=== PATIENT | male | born 1945 | race Hispanic/Latino ===

== ENCOUNTER 2023-10-30 15:23 | Emergency (ER) | payer MEDICARE ==
[2023-10-30 16:08] LABS: #Basophils 0.03 10x3/uL (0.0-0.2); %Basophils 0.5 % (0.0-1.0); %Eosinophils 1.2 % (0.0-10.0); %Lymphocytes 20.5 % (21.0-51.0); %Monocytes 14.3 % (0.0-10.0); Hematocrit 32.2 % (42.0-52.0); Hemoglobin 11.3 g/dL (14.0-18.0); Mean Corpuscular HGB CONC 35.1 g/dL (32.0-36.0); Mean Corpuscular Volume 102.5 fL (78.0-98.0); Mean Platelet Volume 8.7 fL (7.4-10.4); Platelet Count 201 10x3/uL (130-400); RBC Distribution Width 14.1 % (11.5-14.5); Red Blood Cell (RBC) Count 3.14 mill/uL (4.70-6.10)
[2023-10-30 16:22] LABS: ALT (SGPT) 21 U/L (8-55); AST (SGOT) 35 U/L (5-34); Albumin 3.3 g/dL (3.4-4.8); Alkaline Phosphatase 51 U/L (40-110); Anion Gap 17 mmol/L (10-20); BUN (Urea Nitrogen) 10 mg/dL (8.4-25.7); Bilirubin, Total 0.3 mg/dL (0.2-1.2); Calc. Creatinine Clearance 0 mL/min (70-130); Calcium 9.5 mg/dL (7.8-10.44); Carbon Dioxide 22 mmol/L (23-31); Chloride 108 mmol/L (98-107); Estimated GFR 92; Globulin 3.4 g/dL (2.4-3.5); Glucose 171 mg/dL (83-110); Potassium 4.2 mmol/L (3.5-5.1); Protein, Total 6.7 g/dL (5.8-8.1); Sodium 143 mmol/L (136-145)
== END 2023-10-30 16:50 | disposition home or self-care (01) ==
LOC: ERS 15:23
DX: R60.0 Localized edema (principal)
CPT/HCPCS: 36415; 71045; 80053; 83880; 85025; 93005

== ENCOUNTER 2024-01-09 17:25 | Inpatient (IN) | payer MEDICARE ==
[2024-01-09 18:29] LABS: Magnesium 1.4 mg/dL (1.6-2.6)
[2024-01-09 18:30] LABS: Acetaminophen Less than 10 mcg/mL (Less than 10); Alcohol Less than 10.0 mg/dL (Less than 10); Salicylate Less than 8.0 mg/dL (Less than 8.0)
[2024-01-09 18:32] LABS: ALT (SGPT) 9 U/L (8-55); AST (SGOT) 50 U/L (5-34); Albumin 3.5 g/dL (3.4-4.8); Alkaline Phosphatase 214 U/L (40-110); Anion Gap 20 mmol/L (10-20); BUN (Urea Nitrogen) 25 mg/dL (8.4-25.7); Bilirubin, Total 0.4 mg/dL (0.2-1.2); Calc. Creatinine Clearance 0 mL/min (70-130); Calcium 9.7 mg/dL (7.8-10.44); Carbon Dioxide 16 mmol/L (23-31); Chloride 105 mmol/L (98-107); Estimated GFR 60; Glucose 100 mg/dL (83-110); Potassium 4.3 mmol/L (3.5-5.1); Protein, Total 6.5 g/dL (5.8-8.1); Sodium 137 mmol/L (136-145)
[2024-01-09 18:34] LABS: Troponin I 0.022 ng/mL (< 0.028)
[2024-01-09 18:48] LABS: Hematocrit 35.5 % (42.0-52.0); Hemoglobin 12.7 g/dL (14.0-18.0); Mean Corpuscular HGB CONC 35.8 g/dL (32.0-36.0); Mean Corpuscular Volume 95.2 fL (78.0-98.0); Mean Platelet Volume 10.2 fL (7.4-10.4); Platelet Count 114 10x3/uL (130-400); RBC Distribution Width 13.2 % (11.5-14.5); Red Blood Cell (RBC) Count 3.73 mill/uL (4.70-6.10)
[2024-01-09 18:57] LABS: Band 6 % (5-11); Burr Cells SLIGHT = 2-5 cells HPF (0-1); Helmet Cells SLIGHT = 2-5 cells HPF (0-1); Lymphocytes 19 % (21-51); Metamyelocyte 1 % (0-0); Monocytes 14 % (0-10); Myelocyte 1 % (0-0); Neutrophil 58 % (42-75); Ovalocytes SLIGHT = 2-5 cells HPF (0-1); Platelet Adequacy Comment Platelets Decreased; Polychromasia SLIGHT = 2-3 cells HPF (0-2); Reactive Lymphocytes 1 % (0-10)
[2024-01-09] MEDS ORDERED: cefTRIAXone (ROCEPHIN) 1 GM VIAL ONE (19:40)
[2024-01-09] MEDS ORDERED: Sodium Chloride 0.9% 100 ML ONE (19:40)
[2024-01-09] MEDS ORDERED: Ondansetron PF 4 MG/2 ML Vial IVP PRN (21:18)
[2024-01-09] MEDS ORDERED: Guaifenesin DM 100-10/5 ML UDCUP PO PRN (21:18)
[2024-01-09] MEDS ORDERED: Calcium Carbonate 500 MG ChewTAB PO PRN (21:18)
[2024-01-09] MEDS ORDERED: Ondansetron ODT 4 MG TAB PO PRN ×2 (21:18→21:34)
[2024-01-09] MEDS ORDERED: Lorazepam 1 MG TAB PO PRN (21:34)
[2024-01-09] MEDS ORDERED: Lorazepam 2 MG/ML VIAL IM PRN (21:34)
[2024-01-09] MEDS ORDERED: Electrolyte Replacement Protocol 1 EACH FS SCH (21:45)
[2024-01-09 23:04] LABS: Hematocrit 37.2 % (42.0-52.0); Hemoglobin 13.2 g/dL (14.0-18.0); Mean Corpuscular HGB CONC 35.5 g/dL (32.0-36.0); Mean Corpuscular Hemoglobin 34.5 pg (27.0-31.0); Mean Corpuscular Volume 97.1 fL (78.0-98.0); Mean Platelet Volume 10.6 fL (7.4-10.4); Platelet Count 111 10x3/uL (130-400); RBC Distribution Width 13.2 % (11.5-14.5); Red Blood Cell (RBC) Count 3.83 mill/uL (4.70-6.10)
[2024-01-09 23:16] LABS: Bilirubin, Direct 0.2 mg/dL (0.1-0.3); Magnesium 1.4 mg/dL (1.6-2.6)
[2024-01-09 23:24] LABS: Anisocytosis SLIGHT = 6-15 cells HPF (0-5); Band 8 % (5-11); Eosinophils 3 % (0-10); Lymphocytes 19 % (21-51); Metamyelocyte 1 % (0-0); Monocytes 5 % (0-10); Neutrophil 62 % (42-75); Nucleated RBC (Manual Ct) 1 % (0); Ovalocytes SLIGHT = 2-5 cells HPF (0-1); Platelet Adequacy Comment Platelets Normal; Polychromasia SLIGHT = 2-3 cells HPF (0-2); Reactive Lymphocytes 1 % (0-10); Toxic Granulation SLIGHT
[2024-01-10 00:31] LABS: Amphetamine Not Detected (NotDetected); Barbiturates Screen Not Detected (NotDetected); Benzodiazepine Screen Not Detected (NotDetected); Cocaine Metabolite Screen Not Detected (NotDetected); Methadone Not Detected (NotDetected); Methamphetamine Not Detected (NotDetected); Opiate Screen Not Detected (NotDetected); Oxycodone Screen Not Detected (NotDetected); Phencyclidine (PCP) Not Detected (NotDetected); THC/Cannabinoid Screen Not Detected (NotDetected); Tricyclic Screen Not Detected (NotDetected)
[2024-01-10] MEDS: Magnesium Sulfate In Water 4 GM in Premix 1 BAG IVPB SCH (01:39)
[2024-01-10] MEDS: Lorazepam 1 MG TAB PO SCH (01:42)
[2024-01-10] MEDS: Sodium Chloride 0.9% 1,000 ML IV SCH (01:43)
[2024-01-10] MEDS: Thiamine HCl 200 MG/2 ML VIAL SLOW IVP SCH (01:43)
[2024-01-10] MEDS: Azithromycin 500 MG in Sodium Chloride 0.9% 250 ML 250 ML IVPB SCH (01:43)
[2024-01-10 05:28] LABS: Hematocrit 33.6 % (42.0-52.0); Hemoglobin 12.2 g/dL (14.0-18.0); Mean Corpuscular HGB CONC 36.3 g/dL (32.0-36.0); Mean Corpuscular Hemoglobin 34.1 pg (27.0-31.0); Mean Corpuscular Volume 93.9 fL (78.0-98.0); Mean Platelet Volume 10.6 fL (7.4-10.4); Platelet Count 101 10x3/uL (130-400); RBC Distribution Width 13.1 % (11.5-14.5); Red Blood Cell (RBC) Count 3.58 mill/uL (4.70-6.10)
[2024-01-10 05:46] LABS: ALT (SGPT) 9 U/L (8-55); AST (SGOT) 51 U/L (5-34); Albumin 3.3 g/dL (3.4-4.8); Alkaline Phosphatase 196 U/L (40-110); Anion Gap 18 mmol/L (10-20); BUN (Urea Nitrogen) 18 mg/dL (8.4-25.7); Bilirubin, Total 0.4 mg/dL (0.2-1.2); Calc. Creatinine Clearance 61 mL/min (70-130); Calcium 9.7 mg/dL (7.8-10.44); Carbon Dioxide 18 mmol/L (23-31); Chloride 105 mmol/L (98-107); Estimated GFR 90; Globulin 3.2 g/dL (2.4-3.5); Glucose 94 mg/dL (83-110); Protein, Total 6.5 g/dL (5.8-8.1); Sodium 137 mmol/L (136-145)
[2024-01-10 06:02] LABS: Anisocytosis SLIGHT = 6-15 cells HPF (0-5); Band 11 % (5-11); Burr Cells SLIGHT = 2-5 cells HPF (0-1); Lymphocytes 19 % (21-51); Macrocytosis SLIGHT = 6-15 cells HPF (0-5); Metamyelocyte 4 % (0-0); Monocytes 10 % (0-10); Neutrophil 56 % (42-75); Ovalocytes SLIGHT = 2-5 cells HPF (0-1); Platelet Adequacy Comment Platelets Decreased; Polychromasia SLIGHT = 2-3 cells HPF (0-2); Smudge Cells 7.9 %
[2024-01-10] MEDS: Multivit, Therapeutic 1 TAB PO SCH (08:18)
[2024-01-10] MEDS: cefTRIAXone\\ROCEPHIN 1 GM in Sodium Chloride 0.9% 100 ML IVPB SCH (08:18)
[2024-01-10] MEDS: Folic Acid 1 MG TAB PO SCH (08:18)
[2024-01-10] MEDS ORDERED: Famotidine/PF 20 mg/2ml Vial SLOW IVP SCH (09:00)
[2024-01-10] MEDS: Enoxaparin 40 MG (0.4 mL) SYRINGE SC SCH ×2 (10:20→15:37)
[2024-01-10] MEDS ORDERED: Iopamidol-370 76% 500 ML MDV (1 ML CHARGE) ONE (11:38)
[2024-01-10] MEDS: Enoxaparin 30 MG (0.3 mL) SYRINGE SC SCH (14:36)
[2024-01-10] MEDS: Pantoprazole 40 MG VIAL IVP SCH (15:15)
[2024-01-10] MEDS: Enoxaparin 60 MG (0.6 mL) SYRINGE SC SCH (15:48)
[2024-01-10] MEDS: metFORMIN 500 MG TAB PO SCH (18:25)
[2024-01-10] MEDS ORDERED: Lorazepam 1 MG TAB PO PRN (21:34)
[2024-01-11 05:33] LABS: #Basophils 0.07 10x3/uL (0.0-0.2); %Eosinophils 2.3 % (0.0-10.0); %Lymphocytes 18.2 % (21.0-51.0); %Monocytes 13.3 % (0.0-10.0); %Neutrophils 58.1 % (42.0-75.0); Hematocrit 37.7 % (42.0-52.0); Hemoglobin 13.7 g/dL (14.0-18.0); Mean Corpuscular HGB CONC 36.3 g/dL (32.0-36.0); Mean Corpuscular Hemoglobin 34.2 pg (27.0-31.0); Mean Platelet Volume 10.8 fL (7.4-10.4); Platelet Count 96 10x3/uL (130-400); RBC Distribution Width 13.1 % (11.5-14.5); Red Blood Cell (RBC) Count 4.01 mill/uL (4.70-6.10)
[2024-01-11 05:42] LABS: Anion Gap 19 mmol/L (10-20); BUN (Urea Nitrogen) 11 mg/dL (8.4-25.7); Calc. Creatinine Clearance 61 mL/min (70-130); Calcium 10.1 mg/dL (7.8-10.44); Carbon Dioxide 20 mmol/L (23-31); Chloride 104 mmol/L (98-107); Estimated GFR 90; Glucose 107 mg/dL (83-110); Sodium 139 mmol/L (136-145)
[2024-01-11] MEDS: Lorazepam 2 MG/ML VIAL SLOW IVP SCH (06:22)
[2024-01-11] MEDS: Tamsulosin HCl 0.4 MG CAP PO SCH (08:07)
[2024-01-11] MEDS: Pantoprazole 40 MG VIAL IVP SCH (08:11)
[2024-01-11 09:07] LABS: Actual Bicarbonate (HCO3a) 22.3 mEq/L (22-28); Calcium, Ionized (arterial) 1.27 mmol/L (1.12-1.30); Carboxyhemoglobin (COHb) 0.4 gm% (0.0-3.0); Hematocrit-ABG 42 % (42.0-52.0); Hemoglobin (Hb) 14.4 g/dL (14.0-18.0); pH, Arterial 7.447 (7.35-7.45)
[2024-01-11 09:10] LABS: O2 Tension (PaO2), arterial 54.4 mmHg (> 70.0); Puncture Site Right Radial artery
[2024-01-11] MEDS: Magnesium 2 GM/50 ML(in water) 2 GM in Premix 1 BAG IVPB SCH (11:00)
[2024-01-11] MEDS: Dexmedetomidine In 0.9 % NaCl 100 ML IV SCH (11:00)
[2024-01-11] MEDS ORDERED: Glucagon 1 MG/ML KIT IM PRN (11:00)
[2024-01-11] MEDS ORDERED: Dextrose 50% Abboject 50 ML SYRINGE SLOW IVP PRN (11:00)
[2024-01-11] MEDS ORDERED: Dextrose 5% in Water 1,000 ML IV PRN (11:00)
[2024-01-11] MEDS: methylPREDNISolone Sod Succ 40 MG VIAL IVP SCH (11:00)
[2024-01-11] MEDS: Enoxaparin 60 MG (0.6 mL) SYRINGE SC SCH (11:05)
[2024-01-11] MEDS: Nicotine 14 MG PATCH TD SCH (12:45)
[2024-01-11] MEDS: Lactated Ringer's 1,000 ML IV SCH (13:00)
[2024-01-11] MEDS: Lactated Ringer's 500 ML IV SCH (13:00)
[2024-01-11 16:45] LABS: INR-International Normal Ratio 1.2; PTT 35.1 sec (22.9-36.1); Prothrombin Time 14.7 sec (12.0-14.7)
[2024-01-11] MEDS: Lorazepam 0.5 MG TAB PO SCH (21:34)
[2024-01-12 06:04] LABS: Anion Gap 19 mmol/L (10-20); BUN (Urea Nitrogen) 11 mg/dL (8.4-25.7); Calc. Creatinine Clearance 61 mL/min (70-130); Calcium 9.5 mg/dL (7.8-10.44); Carbon Dioxide 21 mmol/L (23-31); Chloride 103 mmol/L (98-107); Estimated GFR 90; Glucose 114 mg/dL (83-110); Potassium 4.2 mmol/L (3.5-5.1); Sodium 139 mmol/L (136-145)
[2024-01-12 06:15] LABS: Hematocrit 33.9 % (42.0-52.0); Hemoglobin 12.4 g/dL (14.0-18.0); Mean Corpuscular HGB CONC 36.6 g/dL (32.0-36.0); Mean Corpuscular Hemoglobin 33.9 pg (27.0-31.0); Mean Corpuscular Volume 92.6 fL (78.0-98.0); Mean Platelet Volume 11.4 fL (7.4-10.4); Platelet Count 95 10x3/uL (130-400); RBC Distribution Width 13.2 % (11.5-14.5); Red Blood Cell (RBC) Count 3.66 mill/uL (4.70-6.10)
[2024-01-12 08:11] LABS: Band 7 % (5-11); Burr Cells SLIGHT = 2-5 cells HPF (0-1); Eosinophils 1 % (0-10); Large Platelets 2.9 % (0-5); Lymphocytes 12 % (21-51); Monocytes 14 % (0-10); Neutrophil 67 % (42-75); Platelet Adequacy Comment Platelets Decreased; Polychromasia SLIGHT = 2-3 cells HPF (0-2)
[2024-01-12] MEDS: Furosemide 20 MG TAB PO SCH (13:00)
[2024-01-12] MEDS: Ipratropium/Albuterol 3 ML NEB NEB SCH (14:52)
[2024-01-12] MEDS: Acetaminophen 325 MG TAB PO PRN (20:29)
[2024-01-12] MEDS: Thiamine 100 MG TAB PO SCH (20:31)
[2024-01-12] MEDS: Lorazepam 1 MG TAB PO PRN (21:03)
[2024-01-12] MEDS ORDERED: Lorazepam 0.5 MG TAB PO PRN (21:34)
[2024-01-13 05:07] LABS: Hematocrit 33.4 % (42.0-52.0); Hemoglobin 12.1 g/dL (14.0-18.0); Mean Corpuscular HGB CONC 36.2 g/dL (32.0-36.0); Mean Corpuscular Hemoglobin 33.8 pg (27.0-31.0); Mean Corpuscular Volume 93.3 fL (78.0-98.0); Mean Platelet Volume 11.6 fL (7.4-10.4); Platelet Count 89 10x3/uL (130-400); RBC Distribution Width 12.8 % (11.5-14.5); Red Blood Cell (RBC) Count 3.58 mill/uL (4.70-6.10)
[2024-01-13 05:15] LABS: Anion Gap 19 mmol/L (10-20); BUN (Urea Nitrogen) 16 mg/dL (8.4-25.7); Calc. Creatinine Clearance 61 mL/min (70-130); Calcium 9.8 mg/dL (7.8-10.44); Carbon Dioxide 20 mmol/L (23-31); Chloride 99 mmol/L (98-107); Estimated GFR 90; Glucose 133 mg/dL (83-110); Potassium 3.7 mmol/L (3.5-5.1); Sodium 134 mmol/L (136-145)
[2024-01-13 05:36] LABS: Anisocytosis SLIGHT = 6-15 cells HPF (0-5); Band 6 % (5-11); Large Platelets 2.9 % (0-5); Lymphocytes 18 % (21-51); Metamyelocyte 4 % (0-0); Monocytes 5 % (0-10); Neutrophil 68 % (42-75); Platelet Adequacy Comment Platelets Decreased; Polychromasia SLIGHT = 2-3 cells HPF (0-2); Tear Drops SLIGHT = 2-5 cells HPF (0-1)
[2024-01-13] MEDS: Furosemide 20 MG TAB PO SCH (09:03)
[2024-01-14 05:10] LABS: Hematocrit 32.8 % (42.0-52.0); Mean Corpuscular HGB CONC 36.6 g/dL (32.0-36.0); Mean Corpuscular Hemoglobin 34.3 pg (27.0-31.0); Mean Corpuscular Volume 93.7 fL (78.0-98.0); Mean Platelet Volume 11.3 fL (7.4-10.4); Platelet Count 78 10x3/uL (130-400); RBC Distribution Width 13.2 % (11.5-14.5)
[2024-01-14 05:12] LABS: Anion Gap 22 mmol/L (10-20); BUN (Urea Nitrogen) 19 mg/dL (8.4-25.7); Calc. Creatinine Clearance 51 mL/min (70-130); Calcium 9.6 mg/dL (7.8-10.44); Carbon Dioxide 19 mmol/L (23-31); Chloride 98 mmol/L (98-107); Estimated GFR 78; Glucose 109 mg/dL (83-110); Potassium 3.6 mmol/L (3.5-5.1); Sodium 135 mmol/L (136-145)
[2024-01-14 05:42] LABS: Band 2 % (5-11); Eosinophils 1 % (0-10); Helmet Cells SLIGHT = 2-5 cells HPF (0-1); Lymphocytes 16 % (21-51); Macrocytosis SLIGHT = 6-15 cells HPF (0-5); Metamyelocyte 3 % (0-0); Monocytes 5 % (0-10); Myelocyte 1 % (0-0); Neutrophil 71 % (42-75); Nucleated RBC (Manual Ct) 3 % (0); Ovalocytes SLIGHT = 2-5 cells HPF (0-1); Platelet Adequacy Comment Platelets Decreased; Polychromasia SLIGHT = 2-3 cells HPF (0-2); Vacuoles SLIGHT
[2024-01-14 06:22] VITALS: BMI 19.9
[2024-01-14] MEDS: methylPREDNISolone Sod Succ 40 MG VIAL IVP SCH (08:22)
[2024-01-14] MEDS: Etomidate 40 MG (20 mL) VIAL IVP SCH (11:58)
[2024-01-14] MEDS ORDERED: Ventilator Sedation Protocol 1 EACH FS SCH (12:00)
[2024-01-14] MEDS ORDERED: Calcium Carbonate 500 MG ChewTAB PER TUBE PRN (12:08)
[2024-01-14] MEDS ORDERED: Guaifenesin DM 100-10/5 ML UDCUP PER TUBE PRN (12:09)
[2024-01-14] MEDS: Lorazepam 2 MG/ML VIAL SLOW IVP PRN (12:11)
[2024-01-14] MEDS ORDERED: Fentanyl BOLUS 250 ML IVPB PRN (12:15)
[2024-01-14] MEDS ORDERED: Propofol BOLUS 1,000 MG/100 ML VIAL IV PRN (12:15)
[2024-01-14] MEDS ORDERED: DISCONTINUE PREVIOUS NARCOTIC PAIN MEDICATIONS AND BENZODIAZEPINES FS SCH (12:15)
[2024-01-14] MEDS: diphenhydrAMINE 50 MG/ML VIAL IVP SCH (12:21)
[2024-01-14] MEDS: Famotidine/PF 20 mg/2ml Vial SLOW IVP SCH (12:21)
[2024-01-14] MEDS: Propofol 1,000 MG/100 ML VIAL IV PRN (12:26)
[2024-01-14] MEDS: Propofol 1,000 MG/100 ML VIAL IV ONE (12:27)
[2024-01-14] MEDS: LevoFLOXacin 750 mg/D5W 750 MG in Premix 1 BAG IVPB SCH (12:27)
[2024-01-14] MEDS: SUCCINYLCHOLINE/SOD CL,ISO/PF 200 MG/10 ML SYRINGE FS SCH (12:27)
[2024-01-14] MEDS: Fentanyl CADD 100 ML IV SCH (13:05)
[2024-01-14 13:31] LABS: Actual Bicarbonate (HCO3a) 19.6 mEq/L (22-28); Base Excess (BEa) -2.1 mEq/L (-2.0 to +3.0); CO2 Tension 25.8 mmHg (35.0-45.0); Calcium, Ionized (arterial) 1.17 mmol/L (1.12-1.30); Carboxyhemoglobin (COHb) 0.2 gm% (0.0-3.0); Hematocrit-ABG 38 % (42.0-52.0); Hemoglobin (Hb) 12.9 g/dL (14.0-18.0); Potassium - ABG Lab 3.86 mmol/L (3.70-5.30); pH, Arterial 7.499 (7.35-7.45)
[2024-01-14 13:46] LABS: Actual Bicarbonate (HCO3a) 20.5 mEq/L (22-28); Base Excess (BEa) -1.8 mEq/L (-2.0 to +3.0); CO2 Tension 28.2 mmHg (35.0-45.0); Calcium, Ionized (arterial) 1.18 mmol/L (1.12-1.30); Carboxyhemoglobin (COHb) 0.3 gm% (0.0-3.0); Hematocrit-ABG 38 % (42.0-52.0); Hemoglobin (Hb) 12.8 g/dL (14.0-18.0); Potassium - ABG Lab 3.83 mmol/L (3.70-5.30)
[2024-01-14 13:47] LABS: Puncture Site Left Brachial artery
[2024-01-14 13:48] LABS: Puncture Site Right Radial artery
[2024-01-14] MEDS: Vecuronium 10 MG VIAL ONE (14:30)
[2024-01-14] MEDS: Albumin 5% 500 ML ONE (15:27)
[2024-01-14] MEDS: Albumin 5% 12.5 GM (250 mL) BOT IVPB SCH (16:03)
[2024-01-14] MEDS: NOREPINEPHRINE 8 MG/250 ML-D5W 250 ML IVPB SCH (17:03)
[2024-01-14] MEDS: Acetaminophen 325 MG TAB PER TUBE PRN (18:25)
[2024-01-14] MEDS ORDERED: Vasopressin In 0.9 % NaCl 40 UNIT in Premix 1 BAG IV SCH (20:15)
[2024-01-14] MEDS: Albumin 25% 25 GM (100 mL) BOT IVPB SCH (20:28)
[2024-01-14] MEDS: Thiamine 100 MG TAB PER TUBE SCH (20:29)
[2024-01-14] MEDS: Sodium Chloride 0.9% 500 ML IV SCH (20:34)
[2024-01-15 04:57] LABS: Anion Gap 17 mmol/L (10-20); BUN (Urea Nitrogen) 27 mg/dL (8.4-25.7); Calc. Creatinine Clearance 45 mL/min (70-130); Calcium 9.2 mg/dL (7.8-10.44); Carbon Dioxide 17 mmol/L (23-31); Chloride 101 mmol/L (98-107); Estimated GFR 66; Glucose 205 mg/dL (83-110); Hemoglobin 13.5 g/dL (14.0-18.0); Mean Corpuscular HGB CONC 37.5 g/dL (32.0-36.0); Mean Corpuscular Hemoglobin 33.7 pg (27.0-31.0); Mean Corpuscular Volume 89.8 fL (78.0-98.0); Mean Platelet Volume 12.2 fL (7.4-10.4); Platelet Count 82 10x3/uL (130-400); Potassium 3.4 mmol/L (3.5-5.1); Red Blood Cell (RBC) Count 4.01 mill/uL (4.70-6.10); Sodium 132 mmol/L (136-145)
[2024-01-15 05:34] LABS: Band 16 % (5-11); Burr Cells SLIGHT = 2-5 cells HPF (0-1); Eosinophils 1 % (0-10); Large Platelets 2.9 % (0-5); Lymphocytes 17 % (21-51); Macrocytosis SLIGHT = 6-15 cells HPF (0-5); Metamyelocyte 3 % (0-0); Monocytes 12 % (0-10); Myelocyte 1 % (0-0); Neutrophil 52 % (42-75); Nucleated RBC (Manual Ct) 5 % (0); Ovalocytes SLIGHT = 2-5 cells HPF (0-1); Platelet Adequacy Comment Platelets Decreased; Polychromasia SLIGHT = 2-3 cells HPF (0-2); Smudge Cells 6.8 %; Tear Drops SLIGHT = 2-5 cells HPF (0-1)
[2024-01-15] MEDS: Potassium Chloride 40 MEQ in Premix 1 BAG IVPB SCH (06:34)
[2024-01-15] MEDS ORDERED: Sterile Water 10 ML VIAL FS PRN (07:12)
[2024-01-15 07:53] LABS: Actual Bicarbonate (HCO3a) 16.3 mEq/L (22-28); Calcium, Ionized (arterial) 1.17 mmol/L (1.12-1.30); Carboxyhemoglobin (COHb) 0.6 gm% (0.0-3.0); Hematocrit-ABG 45 % (42.0-52.0); Hemoglobin (Hb) 15.4 g/dL (14.0-18.0); Potassium - ABG Lab 3.57 mmol/L (3.70-5.30); pH, Arterial 7.557 (7.35-7.45)
[2024-01-15 07:57] LABS: Puncture Site Right Radial artery
[2024-01-15] MEDS: Multivit, Therapeutic 1 TAB PER TUBE SCH (09:17)
[2024-01-15] MEDS: Folic Acid 1 MG TAB PER TUBE SCH (09:17)
[2024-01-15] MEDS ORDERED: Glucagon 1 MG/ML KIT IM PRN (10:46)
[2024-01-15] MEDS ORDERED: Dextrose 50% Abboject 50 ML SYRINGE SLOW IVP PRN (10:46)
[2024-01-15] MEDS ORDERED: Dextrose 5% in Water 1,000 ML IV PRN (10:46)
[2024-01-15] MEDS: Lactated Ringer's 1,000 ML IV SCH ×2 (11:01→22:41)
[2024-01-15 13:06] VITALS: BMI 19.5
[2024-01-15] MEDS: Insulin Regular, Human 100 UNIT/ML 10 ML VIAL SC PRN (13:07)
[2024-01-15 13:25] LABS: Potassium 4.4 mmol/L (3.5-5.1)
[2024-01-15] MEDS: Albumin 25% 25 GM (100 mL) BOT IVPB SCH (20:24)
[2024-01-15] MEDS: Sodium Bicarb 50 MEQ/50 ML Abboject 8.4% SYRINGE IVP SCH (20:24)
[2024-01-15] MEDS: Sodium Chloride 0.9% 500 ML IV SCH (20:26)
[2024-01-15] MEDS: Sodium Chloride 0.9% 500 ML IVPB SCH (21:45)
[2024-01-16] MEDS: Dexamethasone 4 mg/ml Vial SLOW IVP SCH ×3 (01:12→16:35)
[2024-01-16 04:43] LABS: Hematocrit 29.7 % (42.0-52.0); Hemoglobin 10.9 g/dL (14.0-18.0); Mean Corpuscular HGB CONC 36.7 g/dL (32.0-36.0); Mean Corpuscular Hemoglobin 34.5 pg (27.0-31.0); Mean Platelet Volume 12.3 fL (7.4-10.4); Platelet Count 69 10x3/uL (130-400); RBC Distribution Width 13.5 % (11.5-14.5); Red Blood Cell (RBC) Count 3.16 mill/uL (4.70-6.10)
[2024-01-16 04:57] LABS: ALT (SGPT) 10 U/L (8-55); AST (SGOT) 79 U/L (5-34); Albumin 3.1 g/dL (3.4-4.8); Alkaline Phosphatase 412 U/L (40-110); Anion Gap 13 mmol/L (10-20); BUN (Urea Nitrogen) 24 mg/dL (8.4-25.7); Bilirubin, Total 0.6 mg/dL (0.2-1.2); Calc. Creatinine Clearance 59 mL/min (70-130); Calcium 9.1 mg/dL (7.8-10.44); Carbon Dioxide 21 mmol/L (23-31); Chloride 107 mmol/L (98-107); Estimated GFR 89; Globulin 2.3 g/dL (2.4-3.5); Glucose 168 mg/dL (83-110); Potassium 3.9 mmol/L (3.5-5.1); Protein, Total 5.4 g/dL (5.8-8.1); Sodium 137 mmol/L (136-145)
[2024-01-16 06:04] LABS: Anisocytosis MODERATE=16-30 cells HPF (0-5); Band 9 % (5-11); Eosinophils 1 % (0-10); Large Platelets 1.9 % (0-5); Lymphocytes 11 % (21-51); Macrocytosis SLIGHT = 6-15 cells HPF (0-5); Monocytes 11 % (0-10); Neutrophil 68 % (42-75); Nucleated RBC (Manual Ct) 4 % (0); Platelet Adequacy Comment Platelets Decreased; Polychromasia MARKED = >4 cells HPF (0-2); Reactive Lymphocytes 1 % (0-10); Smudge Cells 3.9 %
[2024-01-16 07:38] LABS: Actual Bicarbonate (HCO3a) 19.5 mEq/L (22-28); Analyzer IN Cardio OR; Base Excess (BEa) -3.6 mEq/L (-2.0 to +3.0); CO2 Tension 29.5 mmHg (35.0-45.0); Calcium, Ionized (arterial) 1.19 mmol/L (1.12-1.30); Carboxyhemoglobin (COHb) 0.4 gm% (0.0-3.0); Hematocrit-ABG 35 % (42.0-52.0); Hemoglobin (Hb) 11.9 g/dL (14.0-18.0); Puncture Site Right Radial artery; pH, Arterial 7.438 (7.35-7.45)
[2024-01-16 07:39] LABS: ALV-art Gradient 193.425 mmHg (0-20)
[2024-01-16] MEDS: Lorazepam 2 MG/ML VIAL SLOW IVP SCH (10:32)
[2024-01-16] MEDS: levETIRAcetam 500 MG (5 mL) VIAL SLOW IVP SCH (10:36)
[2024-01-16] MEDS ORDERED: LevoFLOXacin 750 mg/D5W 750 MG in Premix 1 BAG IVPB SCH (12:30)
[2024-01-16] MEDS: LevoFLOXacin 750 mg/D5W 750 MG in Premix 1 BAG IVPB SCH (12:53)
[2024-01-17 05:27] LABS: Hematocrit 29.5 % (42.0-52.0); Hemoglobin 10.6 g/dL (14.0-18.0); Mean Corpuscular HGB CONC 35.9 g/dL (32.0-36.0); Mean Corpuscular Hemoglobin 34.4 pg (27.0-31.0); Mean Corpuscular Volume 95.8 fL (78.0-98.0); Mean Platelet Volume 13.3 fL (7.4-10.4); Platelet Count 89 10x3/uL (130-400); RBC Distribution Width 14.1 % (11.5-14.5); Red Blood Cell (RBC) Count 3.08 mill/uL (4.70-6.10)
[2024-01-17 05:54] LABS: ALT (SGPT) 14 U/L (8-55); AST (SGOT) 119 U/L (5-34); Albumin 3.2 g/dL (3.4-4.8); Alkaline Phosphatase 642 U/L (40-110); Anion Gap 15 mmol/L (10-20); BUN (Urea Nitrogen) 26 mg/dL (8.4-25.7); Bilirubin, Total 0.6 mg/dL (0.2-1.2); Calc. Creatinine Clearance 77 mL/min (70-130); Calcium 9.3 mg/dL (7.8-10.44); Carbon Dioxide 20 mmol/L (23-31); Chloride 103 mmol/L (98-107); Estimated GFR 91; Globulin 2.5 g/dL (2.4-3.5); Glucose 230 mg/dL (83-110); Potassium 4.1 mmol/L (3.5-5.1); Protein, Total 5.7 g/dL (5.8-8.1); Sodium 134 mmol/L (136-145)
[2024-01-17 05:56] LABS: Band 13 % (5-11); Burr Cells SLIGHT = 2-5 cells HPF (0-1); Lymphocytes 12 % (21-51); Metamyelocyte 2 % (0-0); Monocytes 3 % (0-10); Myelocyte 1 % (0-0); Neutrophil 70 % (42-75); Nucleated RBC (Manual Ct) 3 % (0); Platelet Adequacy Comment Platelets Decreased; Polychromasia SLIGHT = 2-3 cells HPF (0-2); Smudge Cells 10.6 %
[2024-01-17 07:42] LABS: Actual Bicarbonate (HCO3a) 18.1 mEq/L (22-28); Base Excess (BEa) -4.7 mEq/L (-2.0 to +3.0); CO2 Tension 26.9 mmHg (35.0-45.0); Calcium, Ionized (arterial) 1.21 mmol/L (1.12-1.30); Carboxyhemoglobin (COHb) 0.2 gm% (0.0-3.0); Hematocrit-ABG 34 % (42.0-52.0); Hemoglobin (Hb) 11.4 g/dL (14.0-18.0); Potassium - ABG Lab 4.05 mmol/L (3.70-5.30); Puncture Site Right Radial artery; pH, Arterial 7.446 (7.35-7.45)
[2024-01-17 07:43] LABS: ALV-art Gradient 417.575 mmHg (0-20)
[2024-01-17] MEDS ORDERED: Ipratropium/Albuterol 3 ML NEB NEB SCH (18:30)
[2024-01-17] MEDS ORDERED: Lidocaine 4% PF 5 ML AMP NEB SCH (18:45)
[2024-01-17] MEDS: levETIRAcetam 500 MG (5 mL) VIAL SLOW IVP SCH (21:46)
[2024-01-17] MEDS: Sodium Chloride 0.9% 1,000 ML IV SCH (22:10)
[2024-01-18 06:45] LABS: ALT (SGPT) 25 U/L (8-55); AST (SGOT) 174 U/L (5-34); Albumin 3.1 g/dL (3.4-4.8); Alkaline Phosphatase 795 U/L (40-110); Anion Gap 16 mmol/L (10-20); BUN (Urea Nitrogen) 31 mg/dL (8.4-25.7); Bilirubin, Total 0.6 mg/dL (0.2-1.2); Calc. Creatinine Clearance 85 mL/min (70-130); Calcium 9.3 mg/dL (7.8-10.44); Carbon Dioxide 19 mmol/L (23-31); Chloride 101 mmol/L (98-107); Estimated GFR 93; Globulin 2.6 g/dL (2.4-3.5); Glucose 256 mg/dL (83-110); Potassium 4.3 mmol/L (3.5-5.1); Protein, Total 5.7 g/dL (5.8-8.1); Sodium 132 mmol/L (136-145)
[2024-01-18 07:23] LABS: Hemoglobin 10.5 g/dL (14.0-18.0); Mean Corpuscular HGB CONC 36.2 g/dL (32.0-36.0); Mean Corpuscular Hemoglobin 34.7 pg (27.0-31.0); Mean Corpuscular Volume 95.7 fL (78.0-98.0); Mean Platelet Volume 13.7 fL (7.4-10.4); Platelet Count 56 10x3/uL (130-400); RBC Distribution Width 14.3 % (11.5-14.5); Red Blood Cell (RBC) Count 3.03 mill/uL (4.70-6.10)
[2024-01-18 07:43] LABS: Actual Bicarbonate (HCO3a) 17.6 mEq/L (22-28); Base Excess (BEa) -5.1 mEq/L (-2.0 to +3.0); CO2 Tension 27.5 mmHg (35.0-45.0); Calcium, Ionized (arterial) 1.22 mmol/L (1.12-1.30); Carboxyhemoglobin (COHb) 0.8 gm% (0.0-3.0); Hematocrit-ABG 43 % (42.0-52.0); Hemoglobin (Hb) 14.5 g/dL (14.0-18.0); Potassium - ABG Lab 4.21 mmol/L (3.70-5.30); pH, Arterial 7.425 (7.35-7.45)
[2024-01-18 07:44] LABS: Puncture Site Right Radial artery
[2024-01-18 07:45] LABS: ALV-art Gradient 488.025 mmHg (0-20)
[2024-01-18 07:48] LABS: Anisocytosis SLIGHT = 6-15 cells HPF (0-5); Band 13 % (5-11); Burr Cells MODERATE= 6-15 cells HPF (0-1); Large Platelets 0.9 % (0-5); Lymphocytes 7 % (21-51); Macrocytosis SLIGHT = 6-15 cells HPF (0-5); Metamyelocyte 1 % (0-0); Monocytes 9 % (0-10); Myelocyte 2 % (0-0); Neutrophil 69 % (42-75); Nucleated RBC (Manual Ct) 4 % (0); Ovalocytes SLIGHT = 2-5 cells HPF (0-1); Platelet Adequacy Comment Platelets Decreased; Polychromasia SLIGHT = 2-3 cells HPF (0-2)
[2024-01-18 14:33] VITALS: BP 93/75
[2024-01-18] MEDS: Lacosamide 100 MG in Sodium Chloride 0.9% 50 ML IVPB SCH (21:50)
[2024-01-19 04:41] LABS: Hematocrit 30.8 % (42.0-52.0); Hemoglobin 11.3 g/dL (14.0-18.0); Mean Corpuscular HGB CONC 36.7 g/dL (32.0-36.0); Mean Corpuscular Hemoglobin 33.7 pg (27.0-31.0); Mean Corpuscular Volume 91.9 fL (78.0-98.0); Platelet Count 42 10x3/uL (130-400); RBC Distribution Width 14.3 % (11.5-14.5); Red Blood Cell (RBC) Count 3.35 mill/uL (4.70-6.10)
[2024-01-19 05:07] LABS: Band 15 % (5-11); Burr Cells MODERATE= 6-15 cells HPF (0-1); Eosinophils 1 % (0-10); Large Platelets 0.9 % (0-5); Lymphocytes 12 % (21-51); Metamyelocyte 4 % (0-0); Monocytes 7 % (0-10); Myelocyte 4 % (0-0); Neutrophil 58 % (42-75); Nucleated RBC (Manual Ct) 6 % (0); Platelet Adequacy Comment Platelets Decreased; Polychromasia SLIGHT = 2-3 cells HPF (0-2); Schistocytes SLIGHT = 2-5 cells HPF (0-1); Smudge Cells 10.4 %
[2024-01-19 05:08] LABS: ALT (SGPT) 37 U/L (8-55); AST (SGOT) 147 U/L (5-34); Albumin 2.7 g/dL (3.4-4.8); Alkaline Phosphatase 912 U/L (40-110); Anion Gap 17 mmol/L (10-20); BUN (Urea Nitrogen) 45 mg/dL (8.4-25.7); Bilirubin, Total 0.7 mg/dL (0.2-1.2); Calc. Creatinine Clearance 79 mL/min (70-130); Calcium 8.8 mg/dL (7.8-10.44); Carbon Dioxide 19 mmol/L (23-31); Chloride 101 mmol/L (98-107); Estimated GFR 92; Globulin 2.5 g/dL (2.4-3.5); Glucose 315 mg/dL (83-110); Potassium 4.7 mmol/L (3.5-5.1); Protein, Total 5.2 g/dL (5.8-8.1); Sodium 132 mmol/L (136-145)
[2024-01-19] MEDS: diphenhydrAMINE 50 MG/ML VIAL IVP SCH (05:33)
[2024-01-19] MEDS: Famotidine/PF 20 mg/2ml Vial SLOW IVP SCH (09:24)
[2024-01-19] MEDS: Morphine 2 MG/ML VIAL SLOW IVP PRN (16:17)
[2024-01-19 18:10] LABS: Actual Bicarbonate (HCO3a) 17.2 mEq/L (22-28); CO2 Tension 34.1 mmHg (35.0-45.0); Calcium, Ionized (arterial) 1.23 mmol/L (1.12-1.30); Carboxyhemoglobin (COHb) 0.3 gm% (0.0-3.0); Hematocrit-ABG 35 % (42.0-52.0); Hemoglobin (Hb) 11.8 g/dL (14.0-18.0); Potassium - ABG Lab 4.76 mmol/L (3.70-5.30)
[2024-01-19 18:14] LABS: O2 Tension (PaO2), arterial 47.6 mmHg (> 70.0)
[2024-01-19 18:15] LABS: ALV-art Gradient 622.775 mmHg (0-20); Puncture Site Right Radial artery
[2024-01-19] MEDS: Vecuronium 10 MG VIAL IVP PRN (18:31)
[2024-01-19] MEDS ORDERED: Vecuronium 10 MG VIAL IVP PRN (18:34)
[2024-01-19] MEDS ORDERED: Insulin Lispro 100 UNIT/ML 10 ML VIAL SC PRN ×2 (22:26)
[2024-01-19 22:38] LABS: Actual Bicarbonate (HCO3a) 20.5 mEq/L (22-28); Base Excess (BEa) -12.2 mEq/L (-2.0 to +3.0); Calcium, Ionized (arterial) 1.27 mmol/L (1.12-1.30); Carboxyhemoglobin (COHb) 0.6 gm% (0.0-3.0); Hematocrit-ABG 34 % (42.0-52.0); Hemoglobin (Hb) 11.7 g/dL (14.0-18.0); Potassium - ABG Lab 5.82 mmol/L (3.70-5.30)
[2024-01-19 22:46] LABS: pH, Arterial 6.981 (7.35-7.45)
[2024-01-19 22:47] LABS: CO2 Tension 88.8 mmHg (35.0-45.0); O2 Tension (PaO2), arterial 47.1 mmHg (> 70.0); Puncture Site Right Radial artery
[2024-01-19] MEDS: Sodium Bicarb 50 mEq/50 ML VIAL IVP SCH (22:56)
[2024-01-19] MEDS: Sodium Chloride 0.9% 500 ML IV SCH (22:56)
[2024-01-19 23:33] LABS: Actual Bicarbonate (HCO3a) 21.8 mEq/L (22-28); Base Excess (BEa) -8.5 mEq/L (-2.0 to +3.0); Calcium, Ionized (arterial) 1.21 mmol/L (1.12-1.30); Carboxyhemoglobin (COHb) 0.1 gm% (0.0-3.0); Hematocrit-ABG 32 % (42.0-52.0); Hemoglobin (Hb) 10.8 g/dL (14.0-18.0); Potassium - ABG Lab 5.41 mmol/L (3.70-5.30)
[2024-01-19 23:35] LABS: CO2 Tension 72.6 mmHg (35.0-45.0); O2 Tension (PaO2), arterial 47.4 mmHg (> 70.0); pH, Arterial 7.096 (7.35-7.45)
[2024-01-19 23:36] LABS: Puncture Site Right Radial artery
[2024-01-20 00:39] LABS: Anion Gap 18 mmol/L (10-20); BUN (Urea Nitrogen) 57 mg/dL (8.4-25.7); Calc. Creatinine Clearance 57 mL/min (70-130); Calcium 8.7 mg/dL (7.8-10.44); Carbon Dioxide 17 mmol/L (23-31); Chloride 101 mmol/L (98-107); Estimated GFR 70; Potassium 5.9 mmol/L (3.5-5.1); Sodium 130 mmol/L (136-145)
[2024-01-20 00:50] LABS: Glucose 497 mg/dL (83-110)
[2024-01-20 02:20] VITALS: TEMP 97.7
[2024-01-20] MEDS: Insulin Lispro 100 UNIT/ML 10 ML VIAL SC PRN (04:23)
[2024-01-20] MEDS: Insulin Regular, Human 100 UNIT/ML 10 ML VIAL IVP SCH (05:12)
[2024-01-20 05:22] LABS: Hematocrit 31.5 % (42.0-52.0); Hemoglobin 10.7 g/dL (14.0-18.0); Mean Corpuscular Hemoglobin 33.8 pg (27.0-31.0); Mean Corpuscular Volume 99.4 fL (78.0-98.0); Platelet Count 33 10x3/uL (130-400); RBC Distribution Width 15.5 % (11.5-14.5); Red Blood Cell (RBC) Count 3.17 mill/uL (4.70-6.10)
[2024-01-20 05:29] LABS: Lactic Acid 6.66 mmol/L (0.5-2.2)
[2024-01-20 05:41] LABS: ALT (SGPT) 115 U/L (8-55); AST (SGOT) 190 U/L (5-34); Albumin 2.6 g/dL (3.4-4.8); Alkaline Phosphatase 864 U/L (40-110); Anion Gap 19 mmol/L (10-20); BUN (Urea Nitrogen) 62 mg/dL (8.4-25.7); Calc. Creatinine Clearance 49 mL/min (70-130); Calcium 8.5 mg/dL (7.8-10.44); Carbon Dioxide 18 mmol/L (23-31); Chloride 102 mmol/L (98-107); Estimated GFR 58; Globulin 2.7 g/dL (2.4-3.5); Glucose 505 mg/dL (83-110); Potassium 5.7 mmol/L (3.5-5.1); Protein, Total 5.3 g/dL (5.8-8.1); Sodium 133 mmol/L (136-145)
[2024-01-20] MEDS ORDERED: Sodium Bicarbonate 150 MEQ in Dextrose 5% in Water 1,000 ML IV SCH (06:00)
[2024-01-20] MEDS ORDERED: Sodium Chloride 0.9% 500 ML IV SCH (06:00)
[2024-01-20 06:44] LABS: Anisocytosis MODERATE=16-30 cells HPF (0-5); Band 9 % (5-11); Burr Cells MODERATE= 6-15 cells HPF (0-1); Elliptocytes SLIGHT = 2-5 cells HPF (0-1); Lymphocytes 38 % (21-51); Macrocytosis SLIGHT = 6-15 cells HPF (0-5); Metamyelocyte 6 % (0-0); Monocytes 3 % (0-10); Myelocyte 2 % (0-0); Neutrophil 41 % (42-75); Nucleated RBC (Manual Ct) 30 % (0); Platelet Adequacy Comment Platelets Decreased; Poikilocytosis MODERATE=16-30 cells HPF (0-5); Polychromasia SLIGHT = 2-3 cells HPF (0-2); Reactive Lymphocytes 2 % (0-10); Smudge Cells 4.9 %
[2024-01-20] MEDS: Lorazepam 2 MG/ML VIAL SLOW IVP SCH (06:46)
[2024-01-21 10:02] LABS: O2 Tension (PaO2), arterial 46.1 mmHg (> 70.0)
[2024-01-21 10:02] LABS: O2 Tension (PaO2), arterial 50.9 mmHg (> 70.0)
[2024-01-21 10:06] LABS: CO2 Tension 18.8 mmHg (35.0-45.0); O2 Tension (PaO2), arterial 52.7 mmHg (> 70.0)
[2024-01-21 10:09] LABS: O2 Tension (PaO2), arterial 54.9 mmHg (> 70.0)
[2024-01-21 10:13] LABS: O2 Tension (PaO2), arterial 47.9 mmHg (> 70.0)
[2024-01-21] MEDS ORDERED: LevoFLOXacin 750 mg/D5W 750 MG in Premix 1 BAG IVPB SCH (12:30)
== END 2024-01-20 06:12 | disposition expired | DRG 870 ==
LOC: ERS 17:25 → ERHOLD 21:02 → CCU 23:40 → 2SE 23:58 → OBSVTOIN 01-10 14:13 → CCU 01-11 09:31
PROVIDERS: ADMIT Internal Medicine; ATTEND Family Medicine
PROC: 5A0945A Assistance with Respiratory Ventilation, 24-96 Consecutive Hours, High Flow/Velocity Cannula (ICD-10-PCS; 2024-01-12)
PROC: 5A1955Z Respiratory Ventilation, Greater than 96 Consecutive Hours (ICD-10-PCS; 2024-01-14)
PROC: 0BH17EZ Insertion of Endotracheal Airway into Trachea, Via Natural or Artificial Opening (ICD-10-PCS; 2024-01-14)
PROC: 0BCB8ZZ Extirpation of Matter from Left Lower Lobe Bronchus, Via Natural or Artificial Opening Endoscopic (ICD-10-PCS; 2024-01-14)
PROC: 0BC58ZZ Extirpation of Matter from Right Middle Lobe Bronchus, Via Natural or Artificial Opening Endoscopic (ICD-10-PCS; 2024-01-14)
PROC: 0BC68ZZ Extirpation of Matter from Right Lower Lobe Bronchus, Via Natural or Artificial Opening Endoscopic (ICD-10-PCS; 2024-01-14)
PROC: 3E033XZ Introduction of Vasopressor into Peripheral Vein, Percutaneous Approach (ICD-10-PCS; 2024-01-14)
PROC: 30233J1 Transfusion of Nonautologous Serum Albumin into Peripheral Vein, Percutaneous Approach (ICD-10-PCS; 2024-01-14)
PROC: 3E03329 Introduction of Other Anti-infective into Peripheral Vein, Percutaneous Approach (ICD-10-PCS; 2024-01-14)
PROC: 4A133R1 Monitoring of Arterial Saturation, Peripheral, Percutaneous Approach (ICD-10-PCS; 2024-01-16)
PROC: 4A00X4Z Measurement of Central Nervous Electrical Activity, External Approach (ICD-10-PCS; principal; 2024-01-19)
DX: A41.9 Sepsis, unspecified organism (principal); G93.41 Metabolic encephalopathy; I61.9 Nontraumatic intracerebral hemorrhage, unspecified; J96.01 Acute respiratory failure with hypoxia; I63.9 Cerebral infarction, unspecified; J15.9 Unspecified bacterial pneumonia; R65.21 Severe sepsis with septic shock; F10.139 Alcohol abuse with withdrawal, unspecified; E87.4 Mixed disorder of acid-base balance; E86.1 Hypovolemia; Z66 Do not resuscitate; Z51.5 Encounter for palliative care; I95.9 Hypotension, unspecified; R63.0 Anorexia; N40.0 Benign prostatic hyperplasia without lower urinary tract symptoms; K70.10 Alcoholic hepatitis without ascites; F32.A Depression, unspecified; F17.210 Nicotine dependence, cigarettes, uncomplicated; E83.42 Hypomagnesemia; E11.9 Type 2 diabetes mellitus without complications; Z68.24 Body mass index [BMI] 24.0-24.9, adult; Z71.6 Tobacco abuse counseling; Z71.41 Alcohol abuse counseling and surveillance of alcoholic; Z87.81 Personal history of (healed) traumatic fracture
CPT/HCPCS: 36415; 36416; 36600; 70450; 71045; 71275; 74150; 80048; 80053; 80306; 80307; 82010; 82248; 82805; 82977; 83605; 83735; 83880; 84100; 84484; 85025; 85379; 85610; 85730; 87040; 87070; 87804; 93005; 93010; 93306; 94002; 94003; 94640; 95700; 95711; 95816; 95819; 96372; 96374; 96375; 96376; C9254; G0378; J0456; J0696; J1100; J1200; J1650; J1815; J1953; J1956; J2060; J2272; J2470; J2704; J2919; J3010; J3411; J3475; J3480; J3490; J7030; J7050; J7120; J7620; P9045; P9047; Q9967